=== PATIENT | male | born 1950 | race Caucasian/White ===

== ENCOUNTER 2018-05-08 06:53 | Emergency (ER) | payer MEDICARE, OTHER ==
[~2018-05-08] VITALS: Ht 177.8 cm; Wt 106.6 kg
[2018-05-08] MEDS ORDERED: Metformin HCl500 MG PO (07:32)
[2018-05-08] MEDS ORDERED: PEN NEEDLE1 EAC1 MC (07:32)
[2018-05-08] MEDS ORDERED: INSULANPEN (07:32)
[2018-05-08] MEDS ORDERED: METO25 (07:32)
[2018-05-08 07:37] LABS: BASOPHILS ABSOLUTE AUTO 0.04 K/mm3 (0.00-0.23); BASOPHILS PERCENT AUTO 1 % (0-2); EOSINOPHILS ABSOLUTE AUTO 0.17 K/mm3 (0.00-0.68); EOSINOPHILS PERCENT AUTO 3 % (0-6); Hematocrit 47.5 % (37.0-53.0); Hemoglobin 15.5 g/dL (13.5-17.5); IMMATURE GRAN ABSOLUTE AUTO 0.01 K/mm3 (0.00-0.10); IMMATURE GRAN PERCENT AUTO 0 % (0-1); LYMPHOCYTES ABSOLUTE AUTO 1.21 K/mm3 (0.84-5.20); LYMPHOCYTES PERCENT AUTO 23 % (21-46); MONOCYTES ABSOLUTE AUTO 0.63 K/mm3 (0.16-1.47); MONOCYTES PERCENT AUTO 12 % (4-13); Mean Corpuscular HGB 29.3 pg (26.0-34.0); Mean Corpuscular HGB Conc 32.6 g/dL (31.5-36.5); Mean Corpuscular Volume 90 fL (80-100); NEUTROPHILS ABSOLUTE AUTO 3.14 K/mm3 (1.96-9.15); NEUTROPHILS PERCENT AUTO 60 % (41-73); Platelet Count 89 K/mm3 (150-400); RDW Coefficient Variation 13.5 % (11.7-14.2); RDW Standard Deviation 44.6 fL (35.1-46.3); Red Blood Cell Count 5.29 M/mm3 (4.30-5.90)
[2018-05-08 07:59] LABS: Alanine Aminotransfer (ALT/SGP 82 U/L (12-78); Albumin, Blood 4.1 g/dL (3.4-5.0); Alk Phos 110 U/L (50-136); Anion Gap 7 mmol/L (6-16); Aspartate Aminotrans (AST/SGOT 61 U/L (12-37); Bilirubin, Total 0.6 mg/dL (0.1-1.0); Blood Urea Nitrogen 20 mg/dL (8-24); Bun/Creatinine Ratio 17.5 (12.0-20.0); CO2, Blood 26 mmol/L (21-32); Calcium, Blood 9.2 mg/dL (8.5-10.1); Chloride, Blood 107 mmol/L (98-108); Creatinine, Blood 1.14 mg/dL (0.60-1.20); Globulin, Blood 4.3 g/dL (2.2-4.0); Glomerular Filtration Rate >60 (60-); Glucose, Blood 120 mg/dL (70-99); Potassium, Blood 4.8 mmol/L (3.5-5.5); Sodium, Blood 140 mmol/L (136-145); Total Protein, Blood 8.4 g/dL (6.4-8.2); Troponin I <0.015 ng/mL (0.000-0.040)
[2018-05-08 08:02] LABS: Mean Platelet Volume 13.7 fL (9.1-12.4)
== END 2018-05-08 10:07 | disposition home or self-care (01) ==
LOC: ER 06:53
PROVIDERS: Emergency Medicine
DX: R42 Dizziness and giddiness (principal); Z79.4 Long term (current) use of insulin
CPT/HCPCS: 36415; 80053; 82375; 84484; 85025; 93005; 93010; 99284-25

== ENCOUNTER 2024-05-14 12:01 | Day surgery (SDC) | payer OTHER ==
[~2024-05-14] VITALS: Ht 177.8 cm; Wt 113.6 kg
[~2024-05-14 12:01] MED LIST: Balanced Salt Epinephrine Irrigation Solution 500 mL IR SCH; INSULANPEN; Lidocaine HCl/Pf 1% 5 ML VIAL XX SCH; METO25; Metformin HCl500 MG PO; Moxifloxacin HCL 0.5 MG/0.1 ML 0.4MLSYR LEFTEYE SCH; NS 500 ML IV ONE; PEN NEEDLE1 EAC1 MC; PHENYLEPHRINE\\TROPICAMIDE\\TETRACAINE OPHTHALMIC DILATING SOLN LEFTEYE PRN; Povidone-Iodine 450 DROP/30 ML Solution LEFTEYE SCH; Povidone-Iodine 450 DROP/30 ML Solution ONE; Tetracaine HCl/Pf 0.5% Opth Soln 4 ml ONE; Triamcinolone Inj Susp 40 MG / ML 1ML Vial INJ SCH; Triamcinolone Inj Susp 40 MG / ML 1ML Vial ONE
[2024-05-14] MEDS ORDERED: GLIP10 (12:32)
[2024-05-14] MEDS ORDERED: LOSA50 (12:33)
[2024-05-14] MEDS ORDERED: AMLO5 (12:34)
[2024-05-14] MEDS ORDERED: CARV6.25 (12:34)
[2024-05-14] MEDS ORDERED: Aspir 8181 MG (12:35)
[2024-05-14] MEDS ORDERED: NS 1,000 ML IV ONE (12:54)
[2024-05-14] MEDS ORDERED: FentaNYL Citrate 50 MCG/ML 2 ML Injection ONE (13:02)
[2024-05-14] MEDS ORDERED: Midazolam HCl 1MG / ML 2ML Vial ONE (13:02)
[2024-05-14] MEDS ORDERED: Glycopyrrolate 0.2 MG/ML 5ML VIAL ONE (13:33)
[2024-05-14 13:46] VITALS: BP 143/86
== END 2024-05-14 14:02 | disposition home or self-care (01) ==
LOC: ORSCSDS 12:01
PROVIDERS: Ophthalmology
PROC: 08RK3JZ Replacement of Left Lens with Synthetic Substitute, Percutaneous Approach (ICD-10-PCS; principal; 2024-05-14 13:30)
DX: E11.36 Type 2 diabetes mellitus with diabetic cataract (principal); H25.813 Combined forms of age-related cataract, bilateral; H52.202 Unspecified astigmatism, left eye; I10 Essential (primary) hypertension; E78.5 Hyperlipidemia, unspecified; I25.10 Atherosclerotic heart disease of native coronary artery without angina pectoris; E66.9 Obesity, unspecified; Z68.35 Body mass index [BMI] 35.0-35.9, adult; Z79.4 Long term (current) use of insulin; Z79.84 Long term (current) use of oral hypoglycemic drugs; Z79.899 Other long term (current) drug therapy; K74.60 Unspecified cirrhosis of liver
CPT/HCPCS: 82947; J2250; J3010; J3301; J7040; V2632

== ENCOUNTER 2024-05-21 11:48 | Day surgery (SDC) | payer OTHER ==
[~2024-05-21] VITALS: Ht 177.8 cm; Wt 114.0 kg
[~2024-05-21 11:48] MED LIST changes: +AMLO5; +Aspir 8181 MG; +CARV6.25; +GLIP10; +LOSA50; -Moxifloxacin HCL 0.5 MG/0.1 ML 0.4MLSYR LEFTEYE SCH; +Moxifloxacin HCL 0.5 MG/0.1 ML 0.4MLSYR RIGHTEYE SCH; -NS 500 ML IV ONE; -PHENYLEPHRINE\\TROPICAMIDE\\TETRACAINE OPHTHALMIC DILATING SOLN LEFTEYE PRN; +PHENYLEPHRINE\\TROPICAMIDE\\TETRACAINE OPHTHALMIC DILATING SOLN RIGHTEYE PRN; -Povidone-Iodine 450 DROP/30 ML Solution LEFTEYE SCH; +Povidone-Iodine 450 DROP/30 ML Solution RIGHTEYE SCH
[2024-05-21] MEDS ORDERED: NS 500 ML IV ONE (12:34)
[2024-05-21] MEDS ORDERED: Midazolam HCl 1MG / ML 2ML Vial ONE (12:45)
[2024-05-21] MEDS ORDERED: FentaNYL Citrate 50 MCG/ML 2 ML Injection ONE (12:45)
[2024-05-21 13:09] VITALS: BP 126/68
--- NOTE | 2024-05-21 13:21 | NUR ---
05/21/24 1321 Surekha Armijo D/Kavita INSTRUCTIONS GIVEN TO PT, UNDERSTANDING VERBALIZED. PT DRINKING PO LIQUIDS W/O COMPLAINT. PT DENIES PAIN/NAUSEA, VSS, ON RA. PT HAS ALL BELONGINGS W/ HIM, INCLUDING EYE KIT. PT WHEELED TO PRIVATE VEHICLE, STEADY GAIT NOTED. NO VISIBLE SIGNS OF DISTRESS NOTED.
== END 2024-05-21 13:19 | disposition home or self-care (01) ==
LOC: ORSCSDS 11:48
PROVIDERS: Ophthalmology
PROC: 08RJ3JZ Replacement of Right Lens with Synthetic Substitute, Percutaneous Approach (ICD-10-PCS; principal; 2024-05-21 13:30)
DX: E11.36 Type 2 diabetes mellitus with diabetic cataract (principal); H25.811 Combined forms of age-related cataract, right eye; H52.201 Unspecified astigmatism, right eye; Z96.1 Presence of intraocular lens; I10 Essential (primary) hypertension; I25.10 Atherosclerotic heart disease of native coronary artery without angina pectoris; Z95.1 Presence of aortocoronary bypass graft; K74.60 Unspecified cirrhosis of liver; Z79.4 Long term (current) use of insulin; Z79.82 Long term (current) use of aspirin; Z79.84 Long term (current) use of oral hypoglycemic drugs; Z79.899 Other long term (current) drug therapy
CPT/HCPCS: 82947; J2250; J3010; J3301; V2632